=== PATIENT | female | born 1995 | race African-American/Black ===

== ENCOUNTER 2019-01-21 09:10 | Emergency (ER) | payer MEDICAID ==
[~2019-01-21] VITALS: Ht 160 cm; Wt 86.0 kg
[2019-01-21] MEDS ORDERED: SODIUM CHLORIDE 0.9% 1,000 ML IV ONE (10:20)
[2019-01-21 10:48] LABS: BASOPHILS % 0.5 % (0.0-2.0); EOSINOPHILS % 0.5 % (0.0-5.0); HEMATOCRIT. 36.2 % (36.0-48.0); HEMOGLOBIN. 12.3 g/dL (12.0-16.0); LYMPHOCYTES % 17.1 % (20.0-50.0); MEAN CORPUSCULAR HEMOGLOBIN 30.1 pg (28.0-32.0); MEAN CORPUSCULAR VOLUME 88.4 fL (81.0-99.0); MEAN PLATELET VOLUME 7.5 fl (7.4-10.4); MONOCYTES % 4.6 % (2.0-8.0); NEUTROPHILS % 77.3 % (40.0-76.0); PLATELET 304 x1000/uL (130-400); RED CELL DISTRIBUTION WIDTH 13.1 % (11.6-14.6)
[2019-01-21 10:54] LABS: CHLORIDE 104 mEq/L (98-107)
[2019-01-21 11:18] LABS: B-HCG QUANTITATIVE 86913 mIU/mL (<3)
[2019-01-21] MEDS ORDERED: ONDANSETRON HCL 4MG/2ML INJ IV ONE (11:45)
[2019-01-21 14:28] VITALS: BP 121/62
== END 2019-01-21 14:27 | disposition home or self-care (01) ==
LOC: ER 09:10
DX: O21.0 Mild hyperemesis gravidarum (principal); E86.0 Dehydration; Z3A.13 13 weeks gestation of pregnancy
CPT/HCPCS: 36415; 80053; 81025; 84702; 85025; 86850; 86900; 86901; 96361; 96374; 99283; J2405; J7030; Z7610

== ENCOUNTER 2019-03-03 00:16 | Emergency (ER) | payer MEDICAID ==
[~2019-03-03] VITALS: Ht 160 cm; Wt 87.0 kg
[2019-03-03] MEDS ORDERED: SODIUM CHLORIDE 0.9% 1,000 ML IV ONE (00:33)
[2019-03-03 01:07] LABS: BASOPHILS % 0.4 % (0.0-2.0); HEMOGLOBIN. 11.3 g/dL (12.0-16.0); LYMPHOCYTES % 17.2 % (20.0-50.0); MEAN CORPUSCULAR HEMOGLOBIN 30.5 pg (28.0-32.0); MEAN CORPUSCULAR VOLUME 88.6 fL (81.0-99.0); MEAN PLATELET VOLUME 7.8 fl (7.4-10.4); MONOCYTES % 6.7 % (2.0-8.0); NEUTROPHILS % 74.7 % (40.0-76.0); PLATELET 293 x1000/uL (130-400); RED BLOOD CELL COUNT 3.72 mill/uL (4.2-5.4); RED CELL DISTRIBUTION WIDTH 13.4 % (11.6-14.6)
[2019-03-03 01:09] LABS: CHLORIDE 105 mEq/L (98-107)
[2019-03-03 01:10] LABS: INR 0.9; PROTHROMBIN TIME 9.6 sec (9.6-11.0)
[2019-03-03 01:22] LABS: CLARITY URINE CLOUDY (CLEAR); COLOR URINE YELLOW (YELLOW); KETONES URINE NEGATIVE (NEGATIVE); LEUKOCYTE ESTERASE URINE 2+ (NEGATIVE); NITRITE URINE NEGATIVE (NEGATIVE); OCCULT BLOOD URINE NEGATIVE (NEGATIVE); PH URINE 5.5 (4.5-8.0); PROTEIN URINE NEGATIVE (NEGATIVE); SPECIFIC GRAVITY URINE 1.023 (1.005-1.030); UROBILINOGEN URINE 0.2 E.U./dL (0.2-1.0)
[2019-03-03 01:35] LABS: B-HCG QUANTITATIVE 15390 mIU/mL (<3)
[2019-03-03 02:03] LABS: *AMPHETAMINES SCREEN URINE NEGATIVE (NEGATIVE); *BARBITURATES SCREEN URINE NEGATIVE (NEGATIVE); *COCAINE SCREEN URINE NEGATIVE (NEGATIVE)
[2019-03-03 02:04] LABS: *BENZODIAZEPINES SCREEN URINE NEGATIVE (NEGATIVE); CANNABINOID URINE SCREEN NEGATIVE (NEGATIVE); METHADONE URINE SCREEN NEGATIVE (NEGATIVE); OPIATES URINE SCREEN NEGATIVE (NEGATIVE); PHENCYCLIDINE URINE SCREEN NEGATIVE (NEGATIVE)
[2019-03-03 02:54] VITALS: BP 114/64
== END 2019-03-03 03:01 | disposition home or self-care (01) ==
LOC: ER 00:16
DX: O26.892 Other specified pregnancy related conditions, second trimester (principal); O23.42 Unspecified infection of urinary tract in pregnancy, second trimester; O42.912 Preterm premature rupture of membranes, unspecified as to length of time between rupture and onset of labor, second trimester; Z3A.20 20 weeks gestation of pregnancy
CPT/HCPCS: 36415; 76805; 80053; 80305; 81003; 84702; 85025; 85610; 86850; 86900; 86901; 99284; J7030; Z7610

== ENCOUNTER 2019-03-28 15:19 | Observation (INO) | payer MEDICAID ==
[~2019-03-28] VITALS: Ht 167.6 cm; Wt 89.8 kg
== END 2019-03-28 18:45 | disposition home or self-care (01) ==
LOC: 8 EST LDRP 15:19
PROVIDERS: ADMIT Obstetrics & Gynecology; ATTEND Obstetrics & Gynecology
DX: O42.912 Preterm premature rupture of membranes, unspecified as to length of time between rupture and onset of labor, second trimester (principal); Z3A.23 23 weeks gestation of pregnancy
CPT/HCPCS: 76805; 76830; 99281; G0378